=== PATIENT | male | born 1980 | race Caucasian/White ===

== ENCOUNTER 2022-12-27 12:12 | Emergency (ER) | payer MEDICAID ==
[~2022-12-27] VITALS: Ht 185.4 cm; Wt 122.5 kg
[~2022-12-27 12:12] MED LIST: LORA10TA19 PO; PANT40EC PO; SUL500 PO; WARF-83 PO
[2022-12-27 12:16] VITALS: BP 160/90
[2022-12-27] MEDS ORDERED: NACL 0.9% 1,000 ML IV ONE (12:40)
--- NOTE | 2022-12-27 12:58 | NUR ---
PT REFUSING BLOOD DRAWN AND IV UNTIL SEEN BY . DR NIETO MADE AWARE
--- NOTE | 2022-12-27 13:15 | NUR ---
PATIENT LEFT WITHOUT BEING SEEN BY DR. NIETO. NO FURTHER CARE PROVIDED FOR PATIENT.
== END 2022-12-27 13:15 | disposition left against medical advice (07) ==
LOC: MED 12:12
DX: R10.9 Unspecified abdominal pain (principal); Z53.21 Procedure and treatment not carried out due to patient leaving prior to being seen by health care provider
CPT/HCPCS: 99281